=== PATIENT | female | born 1935 | race Caucasian/White ===

== ENCOUNTER 2018-12-17 15:59 | Inpatient (IN) | payer OTHER ==
[~2018-12-17] VITALS: Ht 165.1 cm; Wt 59.0 kg
[2018-12-17 16:14] VITALS: Ht 165.1 cm; Wt 59.0 kg
[2018-12-17 16:42] LABS: BASOPHIL % 0.1 % (0-2); CALCIUM 8.8 mg/dL (8.5-10.1); CARBON DIOXIDE 24.7 mmol/L (21-32); CHLORIDE SERUM 97 mmol/L (98-107); CREATININE SERUM 0.8 mg/dL (0.6-1.0); GLUCOSE SERUM 136 mg/dL (74-106); PLATELET COUNT 288 x10^3mcL (130-400); POTASSIUM SERUM 3.4 mmol/L (3.5-5.1); RED CELL DISTRIBUTION WIDTH 13.3 % (11.5-14.5); SODIUM SERUM 135 mmol/L (136-145)
[2018-12-17 16:50] LABS: ALKALINE PHOSPHATASE 374 U/L (46-116); ALT/SGPT 834 U/L (14-59); AST/SGOT 618 U/L (15-37); BILIRUBIN TOTAL 1.79 mg/dL (0.20-1.00); TOTAL PROTEIN, SERUM 7.5 g/dL (6.4-8.2)
[2018-12-17 16:58] LABS: ALBUMIN 3.1 g/dL (3.4-5.0)
[2018-12-17 17:12] LABS: UA SPECIFIC GRAVITY >=1.030 (1.005-1.035); microscopic required? YES; urine erythrocyte TRACE (NEGATIVE)
[2018-12-17] MEDS ORDERED: IBUPROFEN400 MG (18:34)
[2018-12-17] MEDS ORDERED: NOR10 PO (18:34)
[2018-12-17] MEDS ORDERED: MYS50 PO (18:36)
[2018-12-17 20:17] LABS: PHOSPHOROUS 2.4 mg/dL (2.5-4.9)
[2018-12-17 20:21] LABS: AMPHETAMINE QUAL UR NONE DETECTED (See below)
[2018-12-17 20:21] LABS: CHOLESTEROL/HDL RATIO 2.3
[2018-12-17 20:25] LABS: FREE T4 1.15 ng/dL (0.76-1.46); FREE THYROXINE INDEX 2.8 ug/dL (1.4-4.5); T4(THYROXINE) 7.1 ug/dL (4.7-13.3)
[2018-12-17 20:30] LABS: T3 TOTAL 0.8 ng/mL
[2018-12-17 21:57] VITALS: BP 127/56
[2018-12-18 05:07] VITALS: BP 123/60
[2018-12-18 06:26] LABS: MAGNESIUM 1.9 mg/dL (1.8-2.4); PHOSPHOROUS 2.4 mg/dL (2.5-4.9)
[2018-12-18 06:37] LABS: ALKALINE PHOSPHATASE 281 U/L (46-116); ALT/SGPT 610 U/L (14-59); AST/SGOT 393 U/L (15-37); BILIRUBIN TOTAL 1.82 mg/dL (0.20-1.00); CALCIUM 8.4 mg/dL (8.5-10.1); CARBON DIOXIDE 23.2 mmol/L (21-32); CHLORIDE SERUM 102 mmol/L (98-107); CREATININE SERUM 0.7 mg/dL (0.6-1.0); GLUCOSE SERUM 143 mg/dL (74-106); POTASSIUM SERUM 3.8 mmol/L (3.5-5.1); SODIUM SERUM 135 mmol/L (136-145)
[2018-12-18 06:43] LABS: BASOPHIL % 0.1 % (0-2); PLATELET COUNT 235 x10^3mcL (130-400); RED CELL DISTRIBUTION WIDTH 13.3 % (11.5-14.5)
[2018-12-18 06:47] LABS: ALBUMIN 2.3 g/dL (3.4-5.0); TOTAL PROTEIN, SERUM 5.8 g/dL (6.4-8.2)
[2018-12-18 08:25] VITALS: BP 126/58
[2018-12-18 11:46] VITALS: BP 140/60
[2018-12-18 16:29] VITALS: BP 133/63
[2018-12-18 21:17] VITALS: BP 135/66
[2018-12-19 05:59] VITALS: BP 151/69
[2018-12-19 06:27] LABS: ALKALINE PHOSPHATASE 256 U/L (46-116); ALT/SGPT 427 U/L (14-59); AST/SGOT 133 U/L (15-37); BILIRUBIN TOTAL 1.07 mg/dL (0.20-1.00); CALCIUM 8.5 mg/dL (8.5-10.1); CARBON DIOXIDE 25.1 mmol/L (21-32); CHLORIDE SERUM 104 mmol/L (98-107); CREATININE SERUM 0.7 mg/dL (0.6-1.0); GLUCOSE SERUM 134 mg/dL (74-106); MAGNESIUM 1.9 mg/dL (1.8-2.4); POTASSIUM SERUM 4.5 mmol/L (3.5-5.1); SODIUM SERUM 137 mmol/L (136-145); TOTAL PROTEIN, SERUM 6.2 g/dL (6.4-8.2)
[2018-12-19 06:40] LABS: ALBUMIN 2.3 g/dL (3.4-5.0)
[2018-12-19 06:44] LABS: PLATELET COUNT 260 x10^3mcL (130-400); RED CELL DISTRIBUTION WIDTH 13.5 % (11.5-14.5)
[2018-12-19 10:27] VITALS: BP 156/47
[2018-12-19 14:49] VITALS: BP 140/62
[2018-12-19 15:02] LABS: SEGMENTED NEUTROPHILS 84 % (37-75)
[2018-12-19 15:03] LABS: BAND NEUTROPHIL 2 % (0-10); MONOCYTE 9 % (0-7)
[2018-12-19 15:04] LABS: PLATELET MORPHOLOGY PLATELETS NORMAL
[2018-12-19 15:52] LABS: rbc morphology (normal/abnorm) ABNORMAL (NORMAL)
[2018-12-19 16:31] VITALS: BP 122/62
[2018-12-19 16:38] VITALS: BP 139/64
[2018-12-19 20:30] VITALS: BP 126/58
[2018-12-20 05:23] VITALS: BP 125/71
[2018-12-20 07:02] LABS: BASOPHIL % 0.2 % (0-2); PLATELET COUNT 290 x10^3mcL (130-400); RED CELL DISTRIBUTION WIDTH 12.5 % (11.5-14.5)
[2018-12-20 07:11] LABS: CARBON DIOXIDE 23.8 mmol/L (21-32); CHLORIDE SERUM 103 mmol/L (98-107); CREATININE SERUM 0.7 mg/dL (0.6-1.0); GLUCOSE SERUM 149 mg/dL (74-106); SODIUM SERUM 136 mmol/L (136-145)
[2018-12-20 08:04] VITALS: BP 127/69
[2018-12-20 12:19] VITALS: BP 135/65
[2018-12-20 16:30] VITALS: BP 138/69
[2018-12-20 20:07] VITALS: BP 134/77
[2018-12-21 06:28] VITALS: BP 170/71
[2018-12-21 07:16] LABS: BASOPHIL % 0.2 % (0-2); PLATELET COUNT 305 x10^3mcL (130-400); RED CELL DISTRIBUTION WIDTH 12.5 % (11.5-14.5)
[2018-12-21 08:27] LABS: CALCIUM 8.6 mg/dL (8.5-10.1); CARBON DIOXIDE 19.8 mmol/L (21-32); CHLORIDE SERUM 100 mmol/L (98-107); CREATININE SERUM 0.7 mg/dL (0.6-1.0); GLUCOSE SERUM 152 mg/dL (74-106); POTASSIUM SERUM 3.5 mmol/L (3.5-5.1); SODIUM SERUM 129 mmol/L (136-145)
[2018-12-21 09:15] VITALS: BP 126/66
[2018-12-21 13:30] VITALS: BP 145/71
[2018-12-21 19:00] VITALS: BP 145/70
[2018-12-21 19:07] VITALS: BP 151/71
[2018-12-22 04:28] VITALS: BP 151/76
[2018-12-22 06:31] LABS: BASOPHIL % 0.2 % (0-2); PLATELET COUNT 341 x10^3mcL (130-400); RED CELL DISTRIBUTION WIDTH 12.4 % (11.5-14.5)
[2018-12-22 06:41] LABS: CALCIUM 8.5 mg/dL (8.5-10.1); CARBON DIOXIDE 23.8 mmol/L (21-32); CHLORIDE SERUM 104 mmol/L (98-107); CREATININE SERUM 0.6 mg/dL (0.6-1.0); GLUCOSE SERUM 129 mg/dL (74-106); POTASSIUM SERUM 4.4 mmol/L (3.5-5.1); SODIUM SERUM 137 mmol/L (136-145)
[2018-12-22 08:02] VITALS: BP 134/60
[2018-12-22 14:08] VITALS: BP 121/60
[2018-12-22 17:00] VITALS: BP 160/58
[2018-12-22 21:27] VITALS: BP 147/68
[2018-12-23 05:51] VITALS: BP 148/71
[2018-12-23 06:21] LABS: BASOPHIL % 0.1 % (0-2); RED CELL DISTRIBUTION WIDTH 13.5 % (11.5-14.5)
[2018-12-23 06:33] LABS: CALCIUM 8.1 mg/dL (8.5-10.1); CHLORIDE SERUM 101 mmol/L (98-107); CREATININE SERUM 0.7 mg/dL (0.6-1.0); GLUCOSE SERUM 124 mg/dL (74-106); MAGNESIUM 1.7 mg/dL (1.8-2.4); PLATELET COUNT 406 x10^3mcL (130-400); POTASSIUM SERUM 3.4 mmol/L (3.5-5.1); SODIUM SERUM 137 mmol/L (136-145)
[2018-12-23 08:02] VITALS: BP 138/60
[2018-12-23 11:51] VITALS: BP 128/63
[2018-12-23] MEDS ORDERED: ELIQUIS2.5 MG PO (14:07)
[2018-12-23] MEDS ORDERED: LASIX20 MG PO (14:07)
[2018-12-23] MEDS ORDERED: POTASSIUM CHLO10 MEQ PO (14:07)
[2018-12-23 14:38] VITALS: BP 128/63
[2018-12-23 16:06] VITALS: BP 130/60
== END 2018-12-23 17:00 | DRG 871 ==
LOC: ED 15:59 → MU 19:27 → DU 19:27 → MU 20:21 → DU 20:23 → MU 12-22 17:13
PROVIDERS: Emergency Medicine; Family Medicine; Internal Medicine Cardiovascular Disease; ADMIT Internal Medicine
DX: A41.9 Sepsis, unspecified organism (principal); N17.0 Acute kidney failure with tubular necrosis; J96.01 Acute respiratory failure with hypoxia; I50.31 Acute diastolic (congestive) heart failure; I50.21 Acute systolic (congestive) heart failure; N39.0 Urinary tract infection, site not specified; Z68.1 Body mass index [BMI] 19.9 or less, adult; E87.1 Hypo-osmolality and hyponatremia; E44.0 Moderate protein-calorie malnutrition; I11.0 Hypertensive heart disease with heart failure; E87.6 Hypokalemia; B96.29 Other Escherichia coli [E. coli] as the cause of diseases classified elsewhere; I48.91 Unspecified atrial fibrillation; R74.0 Nonspecific elevation of levels of transaminase and lactic acid dehydrogenase [LDH]; R80.9 Proteinuria, unspecified; E83.39 Other disorders of phosphorus metabolism; Z96.642 Presence of left artificial hip joint
CPT/HCPCS: 83880; 84439; 85378; 87804; 97110-GP; 97116-GP; J0696; J1940; J3490; J7030; Q0092

== ENCOUNTER 2019-10-03 14:03 | Emergency (ER) | payer OTHER ==
[~2019-10-03] VITALS: Ht 165.1 cm; Wt 54.4 kg
[~2019-10-03 14:03] MED LIST: ELIQUIS2.5 MG PO; IBUPROFEN400 MG; LASIX20 MG PO; MYS50 PO; NOR10 PO; POTASSIUM CHLO10 MEQ PO
[2019-10-03 14:12] VITALS: Ht 165.1 cm; Wt 54.4 kg
[2019-10-03 16:25] VITALS: BP 179/73
== END 2019-10-03 16:25 | disposition home or self-care (01) ==
LOC: ED 14:03
DX: S80.02XA Contusion of left knee, initial encounter (principal); S80.01XA Contusion of right knee, initial encounter; S73.102A Unspecified sprain of left hip, initial encounter; I10 Essential (primary) hypertension; W18.30XA Fall on same level, unspecified, initial encounter; Y93.89 Activity, other specified; Y92.89 Other specified places as the place of occurrence of the external cause; Y99.8 Other external cause status
CPT/HCPCS: Q0092